=== PATIENT | male | born 1975 | race Caucasian/White ===

== ENCOUNTER 2020-12-30 13:30 | Emergency (ER) | payer SELFPAY ==
[~2020-12-30] VITALS: Ht 180.3 cm; Wt 109.1 kg
[2020-12-30 13:55] VITALS: BP 124/69
[2020-12-30] MEDS ORDERED: DEXAMETHASONE 4 MG TABLET PO ONE (14:15)
[2020-12-30] MEDS ORDERED: ALBUTEROL SULFATE 2.5 MG/3 ML NEBU. NEB ONE (14:15)
--- NOTE | 2020-12-30 14:26 | RAD ---
EXAM: Chest, single view. HISTORY: Chest tightness. Covid 19. COMPARISON: None. FINDINGS: A frontal view of the chest is obtained. There is no infiltrate, pleural effusion or pneumo thorax. The heart is normal in size. IMPRESSION: No acute pulmonary finding. Electronically signed by: Bell Rios MD (12/30/2020 2:24 PM) [id number]
--- NOTE | 2020-12-30 14:36 | PHYS DOC ---
Past Medical History Past Surgical History: No Surgical History (OSBALDO FLORES APRN) Smoking Status: Never Smoker Alcohol Use: None (OSBALDO FLORES APRN) General Adult EDM: Chief Complaint: SHORTNESS OF BREATH HPI: HPI: Patient is a 45 year old male who presents with 4 days ago he was diagnosed with Covid. He states he is here today because he has a cough and slight chest tightness. He states that he is not short of air, denies chest pain, denies fev er, denies abdominal pain, nausea, vomiting, diarrhea, dizziness, headache, syncope, focal weakness, numbness or tingling, vision change. He states he has been taking [id number] cough medication and Mucinex. Patient is not vaccinated for Covid. He rates his overall discomfort at a 7 out of 10. Patient is a smoker. Denies any other medical history. (OSBALDO FLORES APRN) Review of Systems: Review of Systems: Constitutional: Denies fever or chills. [] Eyes: Denies change in visual acuity. [] HENT: Denies nasal congestion or sore throat. [] Respiratory: + cough or denies shortness of breath. [] Cardiovascular: Denies chest pain or edema. + Chest congestion [] GI: Denies abdominal pain, nausea, vomiting, bloody stools or diarrhea. [] : Denies dysuria. [] Musculoskeletal: Denies back pain or joint pain. [] Integument: Denies rash. [] Neurologic: Denies headache, focal weakness or sensory changes. [] Endocrine: Denies polyuria or polydipsia. [] Lymphatic: Denies swollen glands. [] Psychiatric: Denies depression or anxiety. [] (OSBALDO FLORES GLUING MACHINE FEEDER) Heart Score: C/O Chest Pain: No Risk Factors: Risk Factors: DM, Current or recent (<one month) smoker, HTN, HLP, family history of CAD, obesity. Risk Scores: Score 0 - 3: 2.5% MACE over next 6 weeks - Discharge Home Score 4 - 6: 20.3% MACE over next 6 weeks - Admit for Clinical Observation Score 7 - 10: 72.7% MACE over next 6 weeks - Early Invasive Strategies (OSBALDO FLORES GLUING MACHINE FEEDER) Current Medications: Current Medications Medications (Trade) Dose Ordered Sig/Nasreen Start Time Stop Time Status Last Admin Dose Admin Albuterol Sulfate (Ventolin Neb Soln) 2.5 mg 1X ONCE 12/30/20 14:15 12/30/20 14:16 DC Dexamethasone (Decadron) 10 mg 1X ONCE 12/30/20 14:15 12/30/20 14:16 DC 12/30/20 14:16 10 MG [facility] Allergies: Allergies: Allergies Coded Allergies Type Severity Reaction Last Updated Verified Penicillins Allergy Unknown Swelling 12/30/20 Yes [facility] Physical Exam: PE: Constitutional: Well developed, well nourished, no acute distress, non-toxic appearance. [] HENT: Normocephalic, atraumatic, bilateral external ears normal, oropharynx moist, no oral exudates, nose normal. [] Eyes: PERRLA, EOMI, conjunctiva normal, no discharge. [] Neck: Normal range of motion, no tenderness, supple, no stridor. [] Cardiovascular:Heart rate regular rhythm, no murmur [] Lungs & Thorax: Bilateral breath sounds clear to auscultation [] Abdomen: Bowel sounds normal, soft, no tenderness, no masses, no pulsatile masses. [] Skin: Warm, dry, no erythema, no rash. [] Back: No tenderness, no CVA tenderness. [] Extremities: No tenderness, no cyanosis, no clubbing, ROM intact, no edema. [] Neurologic: Alert and oriented X 3, normal motor function, normal sensory function, no focal deficits noted. [] Psychologic: Affect normal, judgement normal, mood normal. [] Normal physical exam ([facility] Current Patient Data: Vital Signs: Vital Signs Date Time Temp Pulse Resp B/P (MAP) Pulse Ox O2 Delivery O2 Flow Rate FiO2 12/30/20 13:55 98.6 97 25 124/69 100 Room Air 98.6 [facility] EKG: EKG: [] [facility] Radiology/Procedures: Radiology/Procedures: [] Impression: [facility] [address] [place] [address] IMAGING REPORT Signed PATIENT: VENUS CAN ACCOUNT: [id number] : 1975 LOCATION: ER AGE: 45 SEX: M EXAM STATUS: REG ER ORD. PHYSICIAN: OSBALDO FLORES APRN REASON: CHEST TIGHTNESS, SOA, COVID+ PROCEDURE: PORTABLE CHEST 1V EXAM: Chest, single view. HISTORY: Chest tightness. Covid 19. COMPARISON: None. FINDINGS: A frontal view of the chest is obtained. There is no infiltrate, pleural effusion or pneumothorax. The heart is normal in size. IMPRESSION: No acute pulmonary finding. Electronically signed by: Bell Morgan MD (12/30/2020 2:24 PM) [id number] DICTATED and SIGNED BY: BELL MORGAN MD DATE: 12/30/20 [id number] 0 (OSBALDO FLORES APRN) Course & Med Decision Making: Course & Med Decision Making Pertinent Labs and Imaging studies reviewed. (See chart for details) COVID-19 CRITERIA: The patient was evaluated during the global COVID-19 pandemic, and that diagnosis was suspected/considered upon their initial presentation. Their evaluation, treatment and testing was consistent with current guidelines for patients who present with complaints or symptoms that may be related to COVID-19. See HPI. Alert and oriented x4. Ambulatory steady gait. Speaks in full clear sentences. Skin pink warm and dry. Lungs are clear to all station all lobes. Patient is given a dose of dexamethasone and a breathing treatment in the ED. chest x-ray shows no acute findings. States he tell him better after breathing treatment. Patient is stable and in no respiratory distress. No accessory muscle use. [] (OSBALDO FLORES APRN) Course & Med Decision Making I have reviewed and agree with all pertinent clinical information above including history, exam, and recommendations. Ajay Malave DO (AJAY MALAEV DO) Keyshawn Disclaimer: Keyshawn Disclaimer: This electronic medical record was generated, in whole or in part, using a voice recognition dictation system. (OSBALDO FLORES APRN) Departure Departure Impression: Primary Impression: COVID-19 Additional Impression: Encounter for medical screening examination Disposition: HOME / SELF CARE / HOMELESS Condition: STABLE Referrals: NO PCP (PCP) Patient Instructions: Medical Screening Exam Additional Instructions: You have been tested for or diagnosed with COVID-19. It is an infection caused by a new type of coronavirus. COVID-19 will cause cold-like or mild flu symptoms in most. It can cause more severe symptoms like problems breathing in some. There is no treatment for COVID-19. The body will clear the infection over time. Self-care will help to ease discomfort. Steps to Take: Self-Care Rest as needed. Healthy habits may help you feel better. Steps include: Choose healthy foods including fruits and vegetables. Drink water throughout the day. Get plenty of sleep each night. If you smoke, try to quit. It may ease breathing. Avoid alcohol. Keep Others Healthy The virus can spread to others. Droplets are released every time you sneeze or cough. The droplets can get into the mouth, nose, or eyes of people near you and lead to infection. To lower the chances of spreading COVID-19 to others: Stay at home until your doctor has said it is safe to leave. If you tested positive this will mean staying isolated until both of the following are true: At least 7 days have passed since the start of illness. You are free of fever for at least 72 hours without the use of medicine. During this time: - Avoid public areas, events, or transportation. Do not return to work or school until your doctor has said it is safe to do so. - Call ahead if you need to go to a medical center. Let them know you may have COVID-19. It will help them guide you where to go. They may also ask you to wear a facemask when you come to the office. - If you call for emergency medical services, let them know you may have COVID- 19. While at home: - Try to avoid close contact with others. Stay about 6 feet away. - If possible, spend most of your time in a separate room from others. - Use a face mask if you will be in close contact with others such as sharing a room or vehicle. - Have someone wipe down common surfaces in the home. Use household electronic assembly every day on areas like doorknobs, counters, or sinks. - Cough or sneeze into a tissue. Throw the tissue away right after use. If a tissue is not available, cough or sneeze into your elbow. - Wash your hands often. Wash them after sneezing or coughing. Use soap and water and wash for at least 20 seconds. Alcohol based hand cleaner assistant can be used if soap and water is not available. - Do not prepare food for others. Avoid sharing personal items like forks, spoons, or toothbrushes. - Avoid close contact with pets while you are sick. There is no evidence of the virus passing to pets. This is a safety step until more is known about this virus. Isolation can be frustrating. Social interaction can help. Keep in touch with friends and family through phone and tech options. You can still interact with others in your home, just keep a safe distance of about 6 feet. Follow-up: Your doctors office will check in with you to see if there are any changes in your health. You may be asked to keep track of symptoms to share with them. They will also let you know when you are clear to be in public again. Problems to Look Out For: Contact your doctor if your recovery is not going as you expect. Get emergency care if you have problems such as: - Trouble breathing - Nonstop chest pain or pressure - Changes in awareness, confusion, or problems waking - Lips or face have bluish color - Worsening of symptoms If you think you have an emergency, call for emergency medical services right away. As taken from [facility] Methylprednisolone (MEDROL) 4 Mg Tab.ds.pk 1 PKG PO UD, #1 PKG Prov: OSBALDO FLORES GLUING MACHINE FEEDER 12/30/20 Albuterol Sulfate (PROAIR HFA INHALER) 8.5 Gm Hfa.aer.ad 1 PUFF INH PRN Q6HRS PRN for SHORTNESS OF BREATH, #1 EACH 0 Refills Prov: OSBALDO FLORES GLUING MACHINE FEEDER 12/30/20 OSBALDO FLORES APRN Dec 30, 2020 14:36 AJAY MALAVE DO Dec 30, 2020 18:22
[2020-12-30] MEDS ORDERED: ALBU2.5V8 INH (14:58)
[2020-12-30] MEDS ORDERED: METH4TAB2 PO (14:58)
== END 2020-12-30 15:59 | disposition home or self-care (01) ==
LOC: ER 13:30
DX: U07.1 COVID-19 (principal); R07.89 Other chest pain
CPT/HCPCS: 71045; 94640; 99284; J7613